=== PATIENT | male | born 1980 | race Hispanic/Latino ===

== ENCOUNTER 2018-01-31 08:47 | Emergency (ER) | payer OTHER ==
--- NOTE | 2018-01-31 09:25 | EDPHYS ---
Physician Documentation [facility] Name: Jian Washington Age: 37 yrs Sex: Male : 1980 Arrival Date: 01/31/2018 Time: 08:50 Bed 6 Private MD: Jaclyn Snyder K ED Physician Alfredito Kidd HPI: 01/31 09:18 This 37 yrs old Male presents to ER via Ambulatory with complaints of Back gs Pain. 09:18 The patient presents with pain that is acute. The symptoms are located in the low back. gs Onset: The symptoms/episode began/occurred 2 day(s) ago. The pain does not radiate. Associated signs and symptoms: Pertinent negatives: dysuria, incontinence, numbness, tingling, urinary retention. The problem was sustained when bending over, when lifting heavy object. Modifying factors: the patient symptoms are aggravated by any movement. Severity of symptoms: At their worst the symptoms were moderate, in the emergency department the symptoms are unchanged. Historical: - Allergies: 09:08 Clindamycin; nausea; hb - Home Meds: 09:08 Omeprazole Oral [Active]; Claritin Oral [Active]; hb - PMHx: 09:08 GERD; hb - PSHx: 09:08 Ankle - Right; volvulus; hb - Immunization history:: Adult Immunizations up to date. - Social history:: Smoking status: Patient/guardian denies using tobacco. ROS: 09:18 All other systems are negative. gs Exam: 09:18 Head/Face: Normocephalic, atraumatic. Eyes: Pupils equal round and reactive to light, gs extra-ocular motions intact. Lids and lashes normal. Conjunctiva and sclera are non-icteric and not injected. Cornea within normal limits. Periorbital areas with no swelling, redness, or edema. ENT: Nares patent. No nasal discharge, no septal abnormalities noted. Tympanic membranes are normal and external auditory canals are clear. Oropharynx with no redness, swelling, or masses, exudates, or evidence of obstruction, uvula midline. Mucous membranes moist. Neck: Trachea midline, no thyromegaly or masses palpated, and no cervical lymphadenopathy. Supple, full range of motion without nuchal rigidity, or vertebral point tenderness. No Meningismus. Chest/axilla: Normal chest wall appearance and motion. Nontender with no deformity. No lesions are appreciated. Cardiovascular: Regular rate and rhythm with a normal S1 and S2. No gallops, murmurs, or rubs. Normal PMI, no JVD. No pulse deficits. Respiratory: Lungs have equal breath sounds bilaterally, clear to auscultation and percussion. No rales, rhonchi or wheezes noted. No increased work of breathing, no retractions or nasal flaring. Abdomen/GI: Soft, non-tender, with normal bowel sounds. No distension or tympany. No guarding or rebound. No evidence of tenderness throughout. Skin: Warm, dry with normal turgor. Normal color with no rashes, no lesions, and no evidence of cellulitis. MS/ Extremity: Pulses equal, no cyanosis. Neurovascular intact. Full, normal range of motion. Neuro: Awake and alert, GCS 15, oriented to person, place, time, and situation. Cranial nerves II-XII grossly intact. Motor strength 5/5 in all extremities. Sensory grossly intact. Cerebellar exam normal. Normal gait. 09:18 Constitutional: The patient appears alert, awake. 09:18 Back: pain, that is mild, of the right low back. 09:18 Neuro: Deep tendon reflexes are normal. Vital Signs: 09:06 BP 130 / 80; Pulse 75; Resp 16; Temp 98; Pulse Ox 100% on R/A; Pain 10/10; hb 09:41 BP 122 / 80; Pulse 62; Resp 16; Pulse Ox 100% on R/A; la1 MDM: 09:11 Patient medically screened. 09:18 Differential diagnosis: Ligament Injury ruptured disc, sprain. Data reviewed: vital gs signs, nurses notes. Response to treatment: There is no appreciated change of the patient's symptoms at this time, and as a result, I will discharge patient. Administered Medications: No medications were administered Disposition: 01/31/18 09:24 Discharged to Home. Impression: Sprain of ligaments of lumbar spine. - Condition is Stable. - Discharge Instructions: Back Exercises, [id number]. - Prescriptions for Naprosyn 500 mg Oral Tablet - take 1 tablet by ORAL route 2 times per day take with food; 14 tablet. Prednisone 20 mg Oral Tablet - take 1 tablet by ORAL route once daily for 5 days; 5 tablet. Pepcid 20 mg Oral Tablet - take 1 tablet by ORAL route once daily; 14 tablet. - Medication Reconciliation Form, Thank You Letter, Antibiotic Education, Prescription Opioid Use form. - Follow up: Private Physician; When: 2 - 3 days; Reason: Re-evaluation by your physician. Signatures: Brayan Elizabeth RN RN la1 Alycia Hughes RN RN Alfredito Kidd MD MD gs
--- NOTE | 2018-01-31 09:25 | ER ---
Nurse's Notes [facility] Name: Jian Washington Age: 37 yrs Sex: Male : 1980 Arrival Date: 01/31/2018 Time: 08:50 Bed 6 Private MD: Jaclyn Snyder K Diagnosis: Sprain of ligaments of lumbar spine Presentation: 01/31 09:05 Presenting complaint: Patient states: Low back pain 10/10 after lifting weights hb yesterday. Transition of care: patient was not received from another setting of care. Onset of symptoms was January 30, 2018. Initial Sepsis Screen: Does the patient meet any 2 criteria? No. Patient's initial sepsis screen is negative. Does the patient have a suspected source of infection? No. Patient's initial sepsis screen is negative. Care prior to arrival: None. 09:05 Method Of Arrival: Ambulatory 09:05 Acuity: TRANG 4 hb Historical: - Allergies: 09:08 Clindamycin; nausea; hb - Home Meds: 09:08 Omeprazole Oral [Active]; Claritin Oral [Active]; hb - PMHx: 09:08 GERD; hb - PSHx: 09:08 Ankle - Right; volvulus; hb - Immunization history:: Adult Immunizations up to date. - Social history:: Smoking status: Patient/guardian denies using tobacco. Screenin:08 Abuse screen: Denies threats or abuse. Denies injuries from another. Nutritional hb screening: No deficits noted. Tuberculosis screening: No symptoms or risk factors identified. Fall Risk None identified. Assessment: 09:08 General: Appears in no apparent distress. Behavior is calm, cooperative. Pain: Pain hb currently is 10 out of 10 on a pain scale. Neuro: Level of Consciousness is awake, alert, obeys commands, Oriented to person, place, time, situation. Cardiovascular: Capillary refill < 3 seconds Patient's skin is warm and dry. Respiratory: Airway is patent Respiratory effort is even, unlabored, Respiratory pattern is regular, symmetrical. GI: No signs and/or symptoms were reported involving the gastrointestinal system. : No signs and/or symptoms were reported regarding the genitourinary system. EENT: No signs and/or symptoms were reported regarding the EENT system. Derm: No signs and/or symptoms reported regarding the dermatologic system. Skin is intact, is healthy with good turgor, Skin is pink, warm \T\ dry. normal. Musculoskeletal: No signs and/or symptoms reported regarding the musculoskeletal system. Circulation, motion, and sensation intact. Reports pain in low back, mid back. 09:41 Reassessment: Patient appears in no apparent distress at this time. No changes from la1 previously documented assessment. Patient and/or family updated on plan of care and expected duration. Pain level reassessed. Patient is alert, oriented x 3, equal unlabored respirations, skin warm/dry/pink. Vital Signs: 09:06 BP 130 / 80; Pulse 75; Resp 16; Temp 98; Pulse Ox 100% on R/A; Pain 10/10; hb 09:41 BP 122 / 80; Pulse 62; Resp 16; Pulse Ox 100% on R/A; la1 ED Course: 08:50 Patient arrived in ED. mr 08:50 Jaclyn Snyder MD is Private Physician. mr 09:05 Alycia Hughes RN is Primary Nurse. hb 09:06 Triage completed. 09:06 Arm band placed on right wrist. 09:07 Alfredito Kidd MD is Attending Physician. gs 09:08 Patient has correct armband on for positive identification. Bed in low position. Call light in reach. Side rails up X 1. 09:41 No provider procedures requiring assistance completed. Patient did not have IV access la1 during this emergency room visit. Administered Medications: No medications were administered Outcome: 09:24 Discharge ordered by . 09:41 Discharged to home ambulatory. la1 09:41 Condition: stable 09:41 Discharge instructions given to patient, Instructed on discharge instructions, follow up and referral plans. medication usage, Demonstrated understanding of instructions, follow-up care, medications, Prescriptions given X 3. 09:42 Patient left the ED. la1 Signatures: Marcie Bush Lee, RN RN la1 lAycia Hughes RN RN Alfredito Kidd MD MD
== END 2018-01-31 09:42 | disposition home or self-care (01) ==
LOC: ER 08:47
DX: S33.5XXA Sprain of ligaments of lumbar spine, initial encounter (principal); X50.0XXA Overexertion from strenuous movement or load, initial encounter; Y93.89 Activity, other specified; Y92.9 Unspecified place or not applicable; Z88.3 Allergy status to other anti-infective agents
CPT/HCPCS: 99282

== ENCOUNTER 2018-08-01 16:29 | Emergency (ER) | payer OTHER ==
[2018-08-01] MEDS ORDERED: KETOROLAC 30 MG/ML INJ ONE (17:35)
[2018-08-01 17:42] LABS: Protime INR 1.11
[2018-08-01 17:43] LABS: Absolute Lymphocytes (CBC) 3.4 K/uL (0.7-4.9); Absolute Monocytes 0.6 K/uL (0.1-1.3); Absolute Neutrophil 2.9 K/uL (1.8-8.0); Eosinophils % 10.8 % (0-4.4); Hematocrit 41.9 % (39.6-49.0); Lymphocytes % 43.8 % (15.3-44.8); MCH 29.6 pg (27.0-35.0); MCV 88.1 fL (80-100); MPV 9.1 fL (7.6-11.3); Monocytes % 7.4 % (3.3-12.3); RBC Red Blood Cell Count 4.75 M/uL (4.33-5.43)
[2018-08-01 17:54] LABS: ALT/SGPT 24 U/L (12-78); AST/SGOT 21 U/L (15-37); Albumin 3.6 g/dL (3.4-5.0); Alkaline Phosphatase 116 U/L (45-117); BUN Blood Urea Nitrogen 14 mg/dL (7-18); Bicarbonate 23 mmol/L (21-32); Bilirubin Direct < 0.1 mg/dL (0-0.2); Bilirubin Total 0.2 mg/dL (0.2-1.0); Glucose Level 127 mg/dL (74-106); Magnesium 2.3 mg/dL (1.8-2.4); NT PRO-BNP 89 pg/mL (<125); Protein, Total 6.9 g/dL (6.4-8.2); Sodium Level 139 mmol/L (136-145); Troponin (Emerg Dept Use Only) 0.03 ng/mL (0.0-0.045)
--- NOTE | 2018-08-01 18:36 | RAD REPORT ---
EXAM DESCRIPTION: RAD - Chest Single View - 08/01/2018 6:15 pm CLINICAL HISTORY: Mid sternal and upper chest pain COMPARISON: None. TECHNIQUE: AP portable chest image was obtained 1733 hours . FINDINGS: Lungs are clear. Heart and vasculature are normal. No measurable pleural effusion and no p neumothorax. No acute bony abnormality seen. No acute aortic findings suspected. IMPRESSION: No acute cardiopulmonary process.
--- NOTE | 2018-08-01 19:51 | EDPHYS ---
Physician Documentation [facility] Name: Jian Washington Age: 37 yrs Sex: Male : 1980 Arrival Date: 08/01/2018 Time: 16:32 Bed 30 Private MD: Jaclyn Snyder K ED Physician Alfredito Kidd HPI: 08/01 17:10 This 37 yrs old Male presents to ER via Wheelchair with complaints of Chest jmm Pain. 17:10 The patient or guardian reports chest pain that is located primarily in the substernal jmm area. The pain radiates to jaw. Associated signs and symptoms: Pertinent negatives: abdominal pain, cough, dizziness, lower extremity pain, lower extremity swelling, lightheadedness, nausea, recent travel, shortness of breath, vomiting. The chest pain is described as sharp. 17:22 Duration: The patient or guardian reports a single episode, that is still ongoing, but jmm improving. This is a 37 year old male with no chronic medical conditions that presents to the ED with chest pain exacerbated with deep inspiration beginning yesterday after noon. Patient states pain has not gone away. Denies recreational drug use, denies family history of CAD, denies tobacco use. Symptoms occurred after "rucking" yesterday which involves running with weight on his back. . Historical: - Allergies: 16:39 Clindamycin; nausea; sv - Home Meds: 17:56 Claritin Oral [Active]; Omeprazole Oral [Active]; mg2 - PMHx: 16:39 GERD; sv - PSHx: 16:39 Ankle - Right; volvulus; sv - Immunization history:: Flu vaccine is up to date. - Social history:: Smoking status: Patient/guardian denies using tobacco, Patient uses alcohol, but reports only rare drinking. - Ebola Screening: : No symptoms or risks identified at this time. ROS: 17:22 Constitutional: Negative for fever, chills, and weight loss, Eyes: Negative for injury, jmm pain, redness, and discharge. 17:22 Respiratory: Negative for shortness of breath, cough, wheezing, and pleuritic chest pain, Abdomen/GI: Negative for abdominal pain, nausea, vomiting, diarrhea, and constipation, Back: Negative for injury and pain, : Negative for injury, bleeding, discharge, and swelling, Skin: Negative for injury, rash, and discoloration, Neuro: Negative for headache, weakness, numbness, tingling, and seizure, Psych: Negative for depression, anxiety, suicide ideation, homicidal ideation, and hallucinations. 17:22 Cardiovascular: Positive for chest pain. 17:22 All other systems are negative. Exam: 17:22 Head/Face: atraumatic. Eyes: EOMI, no conjunctival erythema appreciated ENT: Moist jmm Mucus Membranes Neck: Trachea midline, Supple Chest/axilla: Normal chest wall appearance and motion. 17:22 Abdomen/GI: Non distended, soft Back: Normal ROM Skin: General appearance color normal MS/ Extremity: Moves all extremities, no obvious deformities appreciated, no edema noted to the lower extremities Neuro: Awake and alert, normal gait Psych: Behavior is normal, Mood is normal, Patient is cooperative and pleasant 17:22 Constitutional: The patient appears in no acute distress, alert, awake. 17:22 Cardiovascular: Rate: normal, Rhythm: regular, Pulses: no pulse deficits are appreciated. 17:22 Respiratory: the patient does not display signs of respiratory distress, Respirations: normal, Breath sounds: are clear throughout. Vital Signs: 16:40 BP 140 / 83; Pulse 72; Resp 18; Temp 97.2; Pulse Ox 98% ; Weight 72.57 kg; Height 5 ft. sv 3 in. (160.02 cm); Pain 0/10; 17:57 BP 111 / 68; Pulse 56; Resp 18; Pulse Ox 98% on R/A; mg2 18:54 BP 107 / 72; Pulse 58; Resp 18; Pulse Ox 99% on R/A; mg2 19:50 BP 120 / 82; Pulse 60; Resp 18; Pulse Ox 98% on R/A; Pain 0/10; mg2 16:40 Body Mass Index 28.34 (72.57 kg, 160.02 cm) sv MDM: 17:10 Patient medically screened. rashel 17:28 Data reviewed: vital signs, nurses notes. rashel 19:49 Refusal of service: The patient/guardian displays adequate decision making capability rashel and despite a detailed discussion of alternatives, benefits, risks, and consequences refuses: Admission to the hospital for further work-up and treatment. 19:49 Data reviewed: lab test result(s), EKG, radiologic studies, plain films. ED course: I rashel discussed with the patient the need for admission for further evaluation. I discussed with the patient the possibility of an undiagnosed cardiac condition and possible if the patient refused admission. Patient understood and declined admission. . 08/01 17:16 Order name: Basic Metabolic Panel [facility] 08/01 17:16 Order name: CBC with Diff [facility] 08/01 17:16 Order name: LFT's [facility] 08/01 17:16 Order name: Magnesium [facility] 08/01 17:16 Order name: NT PRO-BNP [facility] 08/01 17:16 Order name: PT-INR [facility] 08/01 17:16 Order name: Troponin (emerg Dept Use Only) [facility] 08/01 17:16 Order name: Basic Metabolic Panel; Complete Time: 18:12 EDMS 08/01 17:16 Order name: CBC with Automated Diff; Complete Time: 18:12 EDMS 08/01 17:16 Order name: Liver (Hepatic) Function; Complete Time: 18:12 EDMS 08/01 17:16 Order name: Magnesium; Complete Time: 18:12 EDMS 08/01 17:16 Order name: NT PRO-BNP; Complete Time: 18:12 EDMS 08/01 17:16 Order name: Protime (+INR); Complete Time: 18:12 EDMS 08/01 17:16 Order name: Troponin (Emerg Dept Use Only); Complete Time: 18:12 EDMS 08/01 16:37 Order name: EKG; Complete Time: 16:38 sv 08/01 16:37 Order name: EKG - Nurse/Tech; Complete Time: 16:45 sv 08/01 17:16 Order name: XRAY Chest (1 view); Complete Time: 18:48 [facility] 08/01 17:16 Order name: Cardiac monitoring; Complete Time: 17:23 [facility] 08/01 17:16 Order name: IV Saline Lock; Complete Time: 17:23 [facility] 08/01 17:16 Order name: Labs collected and sent; Complete Time: 17:23 [facility] 08/01 17:16 Order name: O2 Per Protocol; Complete Time: 17:23 [facility] 08/01 17:16 Order name: O2 Sat Monitoring; Complete Time: 17:23 jm Administered Medications: 17:30 Drug: Ketorolac 30 mg Route: IVP; Site: left antecubital; mg2 19:43 Follow up: Response: No adverse reaction; Marked relief of symptoms mg2 19:49 Drug: Aspirin Chewable Tablet 324 mg Route: PO; mg2 20:00 Follow up: Response: No adverse reaction; Medication administered at discharge. mg2 Disposition: 08/02 15:19 Co-signature as Attending Physician, Alfredito Kidd MD. gs Disposition: 08/01/18 19:50 Discharged to Home. Impression: Chest pain, unspecified. - Condition is Stable. - Discharge Instructions: Nonspecific Chest Pain. - Medication Reconciliation Form, Thank You Letter, Antibiotic Education, Prescription Opioid Use form. - Follow up: Jaclyn Snyder MD; When: 1 - 2 days; Reason: Recheck today's complaints, Continuance of care, Re-evaluation by your physician. Signatures: Dispatcher [employer] EDMeghna De La Fuente RN RN Natan Blackburn PA PA jmm Starr, Gregory, MD MD Ganesh Hogan RN RN mg2 Corrections: (The following items were deleted from the chart) 08/01 20:01 19:50 08/01/2018 19:50 Discharged to Home. Impression: Chest pain, unspecified. mg2 Condition is Stable. Forms are Medication Reconciliation Form, Thank You Letter, Antibiotic Education, Prescription Opioid Use. Follow up: Jaclyn Snyder; When: 1 - 2 days; Reason: Recheck today's complaints, Continuance of care, Re-evaluation by your physician. rashel
--- NOTE | 2018-08-01 19:51 | ER ---
Nurse's Notes [facility] Name: Jian Washington Age: 37 yrs Sex: Male : 1980 Arrival Date: 08/01/2018 Time: 16:32 Bed 30 Private MD: Jaclyn Snyder K Diagnosis: Chest pain, unspecified Presentation: 08/01 16:37 Presenting complaint: Patient states: midsternal/upper chest wall intermittent chest sv pain, worse with deep breathing started yesterday after a running event. c/o bilateral temporal headache. Denies SOB. Transition of care: patient was not received from another setting of care. Onset of symptoms was July 31, 2018. Care prior to arrival: None. 16:37 Method Of Arrival: Wheelchair sv 16:37 Acuity: TRANG 3 sv 17:54 Risk Assessment: Do you want to hurt yourself or someone else? Patient reports no mg2 desire to harm self or others. Initial Sepsis Screen: Does the patient meet any 2 criteria? No. Patient's initial sepsis screen is negative. Does the patient have a suspected source of infection? No. Patient's initial sepsis screen is negative. Triage Assessment: 16:39 General: Appears in no apparent distress. uncomfortable, Behavior is calm, cooperative, sv appropriate for age. Pain: Complains of pain in anterior aspect of right upper chest, anterior aspect of left upper chest and mid-sternal area Pain currently is 0 out of 10 on a pain scale. at worst was 5 out of 10 on a pain scale. Is intermittent. Neuro: Level of Consciousness is awake, alert, obeys commands, Oriented to person, place, time, situation, Moves all extremities. Full function Gait is steady. Respiratory: Respiratory effort is even, unlabored, Respiratory pattern is regular, symmetrical. Historical: - Allergies: 16:39 Clindamycin; nausea; sv - Home Meds: 17:56 Claritin Oral [Active]; Omeprazole Oral [Active]; mg2 - PMHx: 16:39 GERD; sv - PSHx: 16:39 Ankle - Right; volvulus; sv - Immunization history:: Flu vaccine is up to date. - Social history:: Smoking status: Patient/guardian denies using tobacco, Patient uses alcohol, but reports only rare drinking. - Ebola Screening: : No symptoms or risks identified at this time. Screenin:54 Abuse screen: Denies threats or abuse. Denies injuries from another. Nutritional mg2 screening: No deficits noted. Tuberculosis screening: No symptoms or risk factors identified. Fall Risk IV access (20 points). Assessment: 17:52 General: Appears in no apparent distress. comfortable, Behavior is calm, cooperative. mg2 Pain: Complains of pain in suprasternum Pain radiates to jaw Pain currently is 3 out of 10 on a pain scale. Quality of pain is described as aching, Pain began gradually, 1 day ago. Is intermittent. Neuro: Level of Consciousness is awake, alert, obeys commands, Oriented to person, place, time, situation. Cardiovascular: Capillary refill < 3 seconds Patient's skin is warm and dry. Respiratory: Airway is patent Respiratory effort is even, unlabored, Respiratory pattern is regular, symmetrical. GI: No signs and/or symptoms were reported involving the gastrointestinal system. : No signs and/or symptoms were reported regarding the genitourinary system. EENT: No signs and/or symptoms were reported regarding the EENT system. Derm: Skin is intact, is healthy with good turgor, Skin is pink, warm \T\ dry. normal. Musculoskeletal: No signs and/or symptoms reported regarding the musculoskeletal system. 18:54 Reassessment: Patient appears in no apparent distress at this time. Patient and/or mg2 family updated on plan of care and expected duration. Pain level reassessed. Patient is alert, oriented x 3, equal unlabored respirations, skin warm/dry/pink. 19:51 Reassessment: Patient appears in no apparent distress at this time. Patient and/or mg2 family updated on plan of care and expected duration. Pain level reassessed. Patient is alert, oriented x 3, equal unlabored respirations, skin warm/dry/pink. Vital Signs: 16:40 BP 140 / 83; Pulse 72; Resp 18; Temp 97.2; Pulse Ox 98% ; Weight 72.57 kg; Height 5 ft. sv 3 in. (160.02 cm); Pain 0/10; 17:57 BP 111 / 68; Pulse 56; Resp 18; Pulse Ox 98% on R/A; mg2 18:54 BP 107 / 72; Pulse 58; Resp 18; Pulse Ox 99% on R/A; mg2 19:50 BP 120 / 82; Pulse 60; Resp 18; Pulse Ox 98% on R/A; Pain 0/10; mg2 16:40 Body Mass Index 28.34 (72.57 kg, 160.02 cm) sv ED Course: 16:32 Patient arrived in ED. mr 16:32 Jaclyn Snyder MD is Private Physician. mr 16:38 Triage completed. sv 16:38 Ganesh Hogan, RN is Primary Nurse. mg2 16:40 Arm band placed on. sv 16:44 EKG done, by ED staff, reviewed by Carlos ESQUIVEL. jb1 16:49 Natan Blackburn PA is PHCP. [facility] 16:49 Alfredito Kidd MD is Attending Physician. jmm 17:23 XRAY Chest (1 view) Sent. mg2 17:54 No provider procedures requiring assistance completed. Inserted saline lock: 20 gauge mg2 in left antecubital area, using aseptic technique. Blood collected. Patient maintains SpO2 saturation greater than 95% on room air. 17:55 Patient has correct armband on for positive identification. Pulse ox on. NIBP on. mg2 18:15 XRAY Chest (1 view) In Process Unspecified. EDMS 19:50 Jaclyn Snyder MD is Referral Physician. [facility] 20:00 IV discontinued, intact, bleeding controlled, No redness/swelling at site. Pressure mg2 dressing applied. Administered Medications: 17:30 Drug: Ketorolac 30 mg Route: IVP; Site: left antecubital; mg2 19:43 Follow up: Response: No adverse reaction; Marked relief of symptoms mg2 19:49 Drug: Aspirin Chewable Tablet 324 mg Route: PO; mg2 20:00 Follow up: Response: No adverse reaction; Medication administered at discharge. mg2 Outcome: 19:50 Discharge ordered by . [facility] 20:00 Discharged to home ambulatory. mg2 20:00 Condition: good 20:00 Discharge instructions given to patient, Instructed on discharge instructions, follow up and referral plans. Demonstrated understanding of instructions, follow-up care. 20:01 Patient left the ED. mg2 Signatures: Dispatcher [employer] EDMS Bharath Galarza jb1 Meghna Mckeon RN RN Natan Blackburn PA PA [facility] BushCelina mr Ganesh Hogan, [place] RN mg2 Corrections: (The following items were deleted from the chart) 16:40 16:37 Presenting complaint: Patient states: midsternal intermittent chest pain, worse sv with deep breathing started yesterday after a running event. c/o bilateral temporal headache. Denies SOB. sv
[2018-08-01] MEDS ORDERED: ASPIRIN 81 MG CHEWABLE TABLET ONE (19:52)
--- NOTE | 2018-08-02 07:04 | EKG ---
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
== END 2018-08-01 20:01 | disposition home or self-care (01) ==
LOC: ER 16:29
DX: R07.9 Chest pain, unspecified (principal); K21.9 Gastro-esophageal reflux disease without esophagitis; Z88.3 Allergy status to other anti-infective agents
CPT/HCPCS: 36415; 71045; 80048; 80076; 83735; 83880; 84484; 85025; 85610; 93005; 96374; 99284

== ENCOUNTER 2019-12-22 17:39 | Emergency (ER) | payer OTHER ==
--- NOTE | 2019-12-22 18:53 | ER ---
Nurse's Notes [facility] Name: Jian Washington Age: 39 yrs Sex: Male : 1980 Arrival Date: 12/22/2019 Time: 17:44 Bed 23 Private MD: Diagnosis: Acute pharyngitis Presentation: 12/21 17:46 Chief complaint: Patient states: Sore throat for 2 days. Both children diagnosed with ll1 strep throat this past week. No fever yet. No cough or nasal congestion. Coronavirus screen: The patient has NOT traveled to a country currently being monitored by the [facility] within the last 14 days. Ebola Screen: Patient denies travel to an Ebola-affected area in the 21 days before illness onset. Initial Sepsis Screen: Does the patient meet any 2 criteria? No. Patient's initial sepsis screen is negative. Does the patient have a suspected source of infection? No. Patient's initial sepsis screen is negative. Risk Assessment: Do you want to hurt yourself or someone else? Patient reports no desire to harm self or others. 17:46 Method Of Arrival: Ambulatory 1 17:46 Acuity: TRANG 4 ll1 18:09 Onset of symptoms was December 20, 2019. vc Triage Assessment: 18:08 General: Appears in no apparent distress. comfortable, Behavior is calm, cooperative, vc appropriate for age. Historical: - Allergies: 17:49 No Known Allergies; ll1 - PMHx: 17:49 GERD; ll1 - Immunization history:: Flu vaccine is up to date. - Social history:: Smoking status: Patient denies any tobacco usage or history of. Screenin:05 Abuse screen: Denies threats or abuse. Nutritional screening: No deficits noted. vc Tuberculosis screening: No symptoms or risk factors identified. Fall Risk None identified. Assessment: 18:06 Pain: Complains of pain in left aspect of posterior pharynx and right aspect of vc posterior pharynx. Neuro: Level of Consciousness is awake, alert, obeys commands. Cardiovascular: Capillary refill < 3 seconds Patient's skin is warm and dry. Respiratory: Airway is patent Respiratory effort is even, unlabored, Breath sounds are clear. GI: No signs and/or symptoms were reported involving the gastrointestinal system. : No signs and/or symptoms were reported regarding the genitourinary system. EENT: Throat is pink. Derm: Skin temperature is warm. Vital Signs: 17:46 BP 128 / 72; Pulse 49; Resp 17; Temp 98.2; Pulse Ox 98% ; Weight 64.41 kg; Height 5 ft. ll1 3 in. (160.02 cm); Pain 3/10; 18:58 BP 122 / 74; Pulse 52; Resp 14; Temp 98.1; Pulse Ox 99% on R/A; Pain 0/10; ls4 17:46 Body Mass Index 25.15 (64.41 kg, 160.02 cm) ll1 ED Course: 17:44 Patient arrived in ED. fj1 17:48 Triage completed. ll1 17:49 Arm band placed on Patient placed in an exam room. 1 17:50 Natan Blackburn PA is PHCP. [facility] 17:50 Erik Garcia MD is Attending Physician. [facility] 18:02 Danya Marte, RN is Primary Nurse. vc 18:08 Flu Sent. vc 18:08 Strep Sent. vc 18:10 Patient has correct armband on for positive identification. vc Administered Medications: No medications were administered Outcome: 18:52 Discharge ordered by MD. [facility] 19:12 Discharged to home ambulatory. ls4 19:12 Condition: good 19:12 Discharge instructions given to patient, family, Instructed on discharge instructions, follow up and referral plans. medication usage, safety practices, Demonstrated understanding of instructions, follow-up care, medications, Prescriptions given X 1. 19:12 Patient left the ED. ls4 Signatures: Natan Blackburn PA PA Alma Rosa Ramírez RN RN ls4 Danya Marte RN RN vc James, Frank [facility] Christiano Hahn RN RN ll1
--- NOTE | 2019-12-22 18:53 | EDPHYS ---
Physician Documentation [facility] Name: Jian Washington Age: 39 yrs Sex: Male : 1980 Arrival Date: 12/22/2019 Time: 17:44 Bed 23 Private MD: ED Physician Erik Garcia HPI: 12/21 17:49 This 39 yrs old Male presents to ER via Ambulatory with complaints of Sore jmm Throat. 17:49 The patient presents with sore throat. Onset: The symptoms/episode began/occurred jmm gradually, 1 day(s) ago. Modifying factors: The symptoms are alleviated by nothing, the symptoms are aggravated by nothing. Associated signs and symptoms: Pertinent negatives cough, fever. children recently diagnosed with strep infection. Historical: - Allergies: 17:49 No Known Allergies; ll1 - PMHx: 17:49 GERD; ll1 - Immunization history:: Flu vaccine is up to date. - Social history:: Smoking status: Patient denies any tobacco usage or history of. ROS: 17:49 Constitutional: Negative for fever, chills, and weight loss, Cardiovascular: Negative jmm for chest pain, palpitations, and edema, Respiratory: Negative for shortness of breath, cough, wheezing, and pleuritic chest pain, Abdomen/GI: Negative for abdominal pain, nausea, vomiting, diarrhea, and constipation. 17:49 ENT: Positive for sore throat. 17:49 All other systems are negative. Exam: 17:49 Constitutional: This is a well developed, well nourished patient who is awake, alert, jmm and in no acute distress. Head/Face: atraumatic. Eyes: EOMI, no conjunctival erythema appreciated 17:49 Respiratory: Normal respirations, no respiratory distress appreciated Abdomen/GI: Non distended, soft Back: Normal ROM Skin: General appearance color normal MS/ Extremity: Moves all extremities, no obvious deformities appreciated, no edema noted to the lower extremities Neuro: Awake and alert, normal gait Psych: Behavior is normal, Mood is normal, Patient is cooperative and pleasant 17:49 ENT: Posterior pharynx: erythema, that is moderate. Vital Signs: 17:46 BP 128 / 72; Pulse 49; Resp 17; Temp 98.2; Pulse Ox 98% ; Weight 64.41 kg; Height 5 ft. ll1 3 in. (160.02 cm); Pain 3/10; 18:58 BP 122 / 74; Pulse 52; Resp 14; Temp 98.1; Pulse Ox 99% on R/A; Pain 0/10; ls4 17:46 Body Mass Index 25.15 (64.41 kg, 160.02 cm) ll1 MDM: 18:02 Patient medically screened. [facility] 18:51 Data reviewed: vital signs, nurses notes. Counseling: I had a detailed discussion with rashel the patient and/or guardian regarding: the historical points, exam findings, and any diagnostic results supporting the discharge/admit diagnosis, lab results, the need for outpatient follow up, to return to the emergency department if symptoms worsen or persist or if there are any questions or concerns that arise at home. ED course: Patient is alert and non toxic in appearance in the ED. Patient is advised to follow up with pcp and otherwise given strict return precautions. Patient understood and agrees with the plan of care. . 12/21 17:50 Order name: Strep; Complete Time: 18:19 [facility] 12/21 17:50 Order name: Flu; Complete Time: 18:29 [facility] 12/21 18:25 Order name: Throat Culture EDMS Administered Medications: No medications were administered Disposition: 12/22 17:05 Co-signature as Attending Physician, Erik Garcia MD Did not see or evaluate patient. ps1 Signature for administrative purposes. . Disposition: 12/22/19 18:52 Discharged to Home. Impression: Acute pharyngitis. - Condition is Stable. - Discharge Instructions: Pharyngitis. - Prescriptions for Amoxicillin 875 mg Oral Tablet - take 1 tablet by ORAL route every 12 hours for 10 days; 20 tablet. - Medication Reconciliation Form, Thank You Letter, Antibiotic Education, Prescription Opioid Use form. - Follow up: Private Physician; When: 2 - 3 days; Reason: Recheck today's complaints, Continuance of care, Re-evaluation by your physician. Signatures: Dispatcher [employer] EDMS Natan Blackburn PA PA jmm Singer, Phillip, MD MD ps1 Alma Rosa Rivera RN RN ls4 Danya Marte RN RN vc Christiano Hahn RN RN ll1 Corrections: (The following items were deleted from the chart) 12/21 19:12 18:52 12/22/2019 18:52 Discharged to Home. Impression: Acute pharyngitis. Condition is ls4 Stable. Forms are Medication Reconciliation Form, Thank You Letter, Antibiotic Education, Prescription Opioid Use. Follow up: Private Physician; When: 2 - 3 days; Reason: Recheck today's complaints, Continuance of care, Re-evaluation by your physician. rashel
[2019-12-22 19:20] VITALS: BP 122/74; TEMP 98.1; O2SAT 99
== END 2019-12-22 19:12 | disposition home or self-care (01) ==
LOC: ER 17:39
DX: J02.9 Acute pharyngitis, unspecified (principal)
CPT/HCPCS: 87070; 87081; 87804; 99283